=== PATIENT | female | born 2000 | race Two or more races ===

== ENCOUNTER 2022-12-23 20:47 | Emergency (ER) | payer OTHER ==
[2022-12-23] MEDS ORDERED: SUMATRIPTAN SUCCINATE 6 MG/0.5 ML VIAL SQ ONE ×2 (22:30→23:16)
[2022-12-23] MEDS ORDERED: IV NS 0.9% 1,000 ML BAG IV ONE (22:30)
[2022-12-23] MEDS ORDERED: METOCLOPRAMIDE HCL 10 MG/2 ML VIAL IV ONE (22:30)
--- NOTE | 2022-12-23 23:12 | NUR ---
BLOOD COLLECTED SENT TO LAB
[2022-12-23] MEDS ORDERED: METOCLOPRAMIDE HCL 10 MG/2 ML VIAL ONE (23:16)
--- NOTE | 2022-12-23 23:16 | NUR ---
22G IV STARTED ON R AC
--- NOTE | 2022-12-23 23:23 | NUR ---
PT WHELLED TO CT
--- NOTE | 2022-12-23 23:58 | NUR ---
Pt ambulatory with a steady gait. Patient discharged to home in stable condition. Written and verbal after care instructions given. Patient verbalizes understanding of instruction.
[2022-12-23 23:59] VITALS: BP 120/90
== END 2022-12-24 00:01 | disposition home or self-care (01) ==
LOC: ER 20:50
DX: R51.9 Headache, unspecified (principal)
CPT/HCPCS: 99285; 96374; 70450; 96361; 96372; J3030; J2765; J7030